=== PATIENT | female | born 1960 | race Asian ===

== ENCOUNTER 2023-11-02 10:26 | Emergency (ER) | payer BC, OTHER ==
[2023-11-02 10:51] VITALS: BP 164/74; PULSE 98; RESP 18; TEMP 98.7; BMI 24.7
== END 2023-11-02 13:49 | disposition home or self-care (01) ==
LOC: JER 10:26
DX: S80.02XA Contusion of left knee, initial encounter (principal); M25.462 Effusion, left knee; W01.198A Fall on same level from slipping, tripping and stumbling with subsequent striking against other object, initial encounter
CPT/HCPCS: 73562-TC-LT-FY; 93971-TC; 99284-25

== ENCOUNTER 2024-11-13 06:20 | Day surgery (SDC) | payer BC ==
[2024-11-05 14:09] VITALS: BMI 25.4
[2024-11-13 09:36] VITALS: TEMP 97.2
[2024-11-13 09:53] VITALS: RESP 18
[2024-11-13 10:23] VITALS: BP 122/76; PULSE 74
== END 2024-11-13 10:22 | disposition home or self-care (01) ==
LOC: JASU-ENDO 06:20
PROVIDERS: ATTEND Internal Medicine Gastroenterology
PROC: 0DB98ZX Excision of Duodenum, Via Natural or Artificial Opening Endoscopic, Diagnostic (ICD-10-PCS; 2024-11-13)
PROC: 0DB78ZX Excision of Stomach, Pylorus, Via Natural or Artificial Opening Endoscopic, Diagnostic (ICD-10-PCS; 2024-11-13)
PROC: 0DB68ZX Excision of Stomach, Via Natural or Artificial Opening Endoscopic, Diagnostic (ICD-10-PCS; 2024-11-13)
PROC: 0DBH8ZX Excision of Cecum, Via Natural or Artificial Opening Endoscopic, Diagnostic (ICD-10-PCS; principal; 2024-11-13 08:45)
DX: Z12.11 Encounter for screening for malignant neoplasm of colon (principal); D12.0 Benign neoplasm of cecum; K64.8 Other hemorrhoids; K57.30 Diverticulosis of large intestine without perforation or abscess without bleeding; K44.9 Diaphragmatic hernia without obstruction or gangrene; K29.40 Chronic atrophic gastritis without bleeding; K29.50 Unspecified chronic gastritis without bleeding; B96.81 Helicobacter pylori [H. pylori] as the cause of diseases classified elsewhere; R19.5 Other fecal abnormalities
CPT/HCPCS: 88305-TC; 88341-TC; 88342-TC